=== PATIENT | male | born 1980 | race African-American/Black ===

== ENCOUNTER 2024-03-07 22:25 | Emergency (ER) | payer BC, SELFPAY ==
--- NOTE | 2024-03-07 22:27 | XR_ITS ---
The [address] [address] Patient Name: GEOFF TRAN MRN: [facility]:[id number] date: 1980 Sex: M Assigned Patient Location: ED.MAIN Current Patient Location: ED.MAIN Accession/Order Number: [id number] Exam Date: 03/07/2024 22:45 Report Date: 03/08/2024 00:21 At the request of: SHAHID BENEDICT Procedure: XR chest 2V XR chest 2V 03/07/2024 9:45 PM CDT: History: chest pain Comparison: None. Technique: 2 view chest Findings: The cardiomediastinal silhouette is normal. The lungs are clear without infiltrate, effusion, or pneumothorax. The bones are intact. XR/XR chest 2V Impression: No acute cardiopulmonary process. Electronically authenticated by: REBECCA ALMONTE Date: 03/08/2024 00:21
--- NOTE | 2024-03-07 22:27 | ECG_ITS ---
The [facility] Test Date: 2024-03-07 Pat Name: GEOFF CACERES Department: Room: - Gender: Male [employer] Machine Operator: : 1980 Requested By: Order Number: [id number] Reading MD: NAVEED JULIO Measurements Intervals [place]henry Rate: 69 P: 64 DE: 142 QRS: 97 QRSD: 84 T: -21 QT: 360 QTc: 379 Interpretive Statements 1100 Sinus rhythm [address] depression 4564 Twave abnormality, possible inferolateral ischemia 7102 Moderate right axis deviation 9150 abnormal ECG No previous ECG available for comparison Electronically Signed On 03-08-2024 12:31:55 EDT by NAVEED JULIO
[2024-03-07 22:29] VITALS: PULSE 69
[2024-03-07 22:31] VITALS: BP 134/84; PULSE 70; TEMP 36.8; O2SAT 97; BMI 31.3
[2024-03-07 22:41] LABS: Basophils Percent Auto 0.6 % (0.2-2.0); Eosinophils Absolute Auto 0.1 10^3/uL (0.0-0.7); Eosinophils Percent Auto 1.1 % (0.9-7.0); Hematocrit 41.1 % (42.0-54.0); Hemoglobin 14.5 g/dL (14.0-18.0); Immature Granulocytes Abs Auto 0.02 10^3/uL (0.00-0.03); Immature Granulocytes Pct Auto 0.3 % (0.0-0.5); Lymphocytes Absolute Auto 2.1 10^3/uL (1.2-3.8); Lymphocytes Percent Auto 29.9 % (20.5-60.0); Mean Corpuscular HGB Conc 35.3 g/dL (29.9-35.2); Mean Corpuscular Hemoglobin 28.2 pg (25.9-34.0); Mean Corpuscular Volume 79.8 fL (80.0-94.0); Mean Platelet Volume 9.9 fL (9.5-13.5); Monocytes Absolute Auto 0.4 10^3/uL (0.3-0.8); Monocytes Percent Auto 5.9 % (1.7-12.0); Neutrophils Absolute Auto 4.4 10^3/uL (1.4-6.5); Neutrophils Percent Auto 62.2 % (43.0-75.0); Platelet Count 309 10^3/uL (150-450); Red Blood Count 5.15 10^6/uL (4.70-6.10); White Blood Count 7.1 10^3/uL (4.0-11.0)
[2024-03-07 22:55] LABS: Alanine Aminotransferase 54 U/L (16-63); Albumin Level 3.8 g/dL (3.4-5.0); Alkaline Phosphatase 76 U/L (46-116); Aspartate Amino Transferase 30 U/L (15-37); BUN Creatinine Ratio 6.4; Bilirubin Total 0.9 mg/dL (0.2-1.0); Calcium 8.9 mg/dL (8.5-10.1); Carbon Dioxide 28.6 mmol/L (21.0-32.0); Chloride 100 mmol/L (98-107); Estimated GFR (African America >60 (>=60); Estimated GFR (Non-African Ame >60 (>=60); Globulin 3.8 g/dL; Glucose 145 mg/dL (74-106); Potassium 3.6 mmol/L (3.5-5.1); Sodium 136 mmol/L (136-145); Total Protein 7.6 g/dL (6.4-8.2)
[2024-03-07 22:57] LABS: INR 0.97; Partial Thromboplastin Time 25.2 sec (22.3-36.2); Prothrombin Time 10.3 sec (9.0-11.6); Troponin I High Sensitivity 13.8 pg/mL (4.0-76.1)
[2024-03-07 23:06] LABS: Bilirubin Urine NEGATIVE (NEGATIVE); Blood Urine NEGATIVE (NEGATIVE); Clarity Urine CLEAR (CLEAR); Color Urine LT. YELLOW (YELLOW); Glucose Urine UA NEGATIVE (NEGATIVE); Ketones Urine NEGATIVE (NEGATIVE); Leukocyte Esterase Urine NEGATIVE (NEGATIVE); Nitrite Urine NEGATIVE (NEGATIVE); Protein Urine NEGATIVE (NEG/TRACE); Specific Gravity Urine <=1.005 (1.005-1.025); Urine Microscopic Indicated NO; Urobilinogen Urine 0.2 EU/dL (0.2-1.0)
--- NOTE | 2024-03-07 23:11 | ED.GENADUL1 ---
HPI HPI - General Adult General Chief complaint: Chest Pain Stated complaint: CP Time Seen by Provider: 03/07/24 22:27 Source: patient Mode of arrival: ambulance Limitations: no limitations History of Present Illness HPI narrative: 43-year-old male to the emergency department chief chest pain. Patient reports an intermittent left-sided chest pressure that started yesterday afternoon during his [employer] reports this has happened several times in the past when he drinking and denies any shortness of breath. No cardiac history. He does reports that he is seen in the emergency department for chest pain with similar episode in the past. Always associated with energy drinks. He has otherwise been at his baseline health. He lives in [place], is currently working as a fire truck driver. He reports that he drink the energy drink because he was feeling tired. EMS gave aspirin and nitro. He does not currently have pain. Related Data Home Medications ?Medication ?Instructions ?Recorded ?Confirmed No Known Home Medications 03/07/24 03/07/24 Allergies Allergy/AdvReac Type Severity Reaction Status Date / Time No Known Drug Allergies Allergy Verified 03/07/24 22:36 Opioid HPI Opioid Management Most Recent Opioid Data: No Data to Display Review of Systems ROS Status of ROS 10 or more systems reviewed and unremarkable except as noted in history and below Exam Narrative Exam Narrative: VITALS: I have reviewed the triage vital signs. GENERAL: Well developed, well appearing adult in no acute distress. NEURO: Alert and oriented. Moves all extremities. Face is symmetric and expressive. EYES: PERRL. No scleral icterus or conjunctival injection. No discharge. HENT: Normocephalic, atraumatic. Hearing is grossly intact. Nares grossly patent and without discharge. Mucous membranes moist. NECK: No JVD. Patient moves neck without restriction. CARDIO: Rhythm regular. Normal rate. No murmur, rub, or gallop. Pulses equal bilaterally in the upper and lower extremity. No lower extremity edema. PULM: Lungs clear to auscultation in all fernandez. No wheezes, rales, or rhonchi. No conversational dyspnea. No splinting, stridor, or accessory muscle use. GI/: Abdomen is soft and non-tender. Normoactive bowel sounds. EXTREMITIES: Symmetric muscle bulk. No joint swelling. No clubbing, cyanosis, or deformity. SKIN: Warm and dry. Normal turgor. No rash or lesions appreciated. PSYCH: Mood, affect, and interaction is appropriate to the setting. Constitutional Vital Signs, click to edit/add: Last Vital Signs Temp 98.3 F 03/07/24 22:31 Pulse 59 L 03/08/24 00:40 Resp 18 03/08/24 00:40 BP 112/56 03/08/24 00:40 Pulse Ox 98 03/08/24 00:40 O2 Del Method Room Air 03/08/24 00:40 Course Vital Signs Vital signs: Vital Signs Temperature 98.3 F 03/07/24 22:31 Pulse Rate 70 03/07/24 22:31 Respiratory Rate 16 03/07/24 22:31 Blood Pressure 134/84 03/07/24 22:31 Pulse Oximetry 97 03/07/24 22:31 Oxygen Delivery Method Room Air 03/07/24 22:31 Temperature 98.3 F 03/07/24 22:31 Pulse Rate 59 L 03/08/24 00:40 Respiratory Rate 18 03/08/24 00:40 Blood Pressure 112/56 03/08/24 00:40 Pulse Oximetry 98 03/08/24 00:40 Oxygen Delivery Method Room Air 03/08/24 00:40 Medical Decision Making MDM Narrative Medical decision making narrative: 43-year-old male to the emergency department chief complaint chest pain since yesterday when he vital stable, the patient is afebrile. Cardiac workup is initiated. EKG does not show STEMI. Patient agrees with this plan. CBC and chemistry without major abnormality. Initial troponin low. Chest x-ray without acute findings. Repeat troponin remains low. I discussed with the patient. He is relieved. Discussed low risk heart score, discharge versus further work-up/admit. He will follow-up with his doctor when he returns home. Discussed recommendation for provocative testing as an outpatient. Return precautions were discussed. All questions were answered. The patient was discharged home. Heart Score for Major Cardiac Event History: Example factors for history - pattern of chest pain, onset, duration, relation with exercise, stress or cold, localization, concomitant symptoms. reaction to sublingual nitrates, [] Highly suspicious +2 [] Moderately suspicious +1 [x] Slightly suspicious 0 EKG: [] Significant ST-Depression +2 [x] Non specific repolarization disturbance +1 [] Normal 0 Age: [] >= 65 +2 [] 45-65 + 1 [x] <45 0 Risk Factors: (HLD, HTN, DM, Cigarette Smoking, Pos Family Hx, Obesity) [] >3 risk factors or hx of atherosclerotic disease + 2 [x] 1-2 risk factors + 1 [] No risk factors known 0 Troponin: [] >= 3X normal + 2 [] 1-3X normal + 1 [x] <= Normal 0 [x] 0-3 Points 0.9 - 1.7% risk of major adverse cardiac event in 6 weeks [] 4-6 Points 12-16.6% risk of major adverse cardiac event in 6 weeks [] 7-10 Points 50-65% risk of major adverse cardiac event in 6 weeks [] 0-3 Points with 2 sets of negative cardiac markers <1% risk of major adverse cardiac event in 30 days. Medical Records Medical records reviewed: Yes I reviewed the patient's medical records Lab Data Lab results reviewed: Yes I reviewed the patient's lab results Labs: Lab Results 03/07/24 03/07/24 03/08/24 Range/Units 22:30 22:45 00:36 WBC 7.1 (4.0-11.0) 10^3/uL RBC 5.15 (4.70-6.10) 10^6/uL Hgb 14.5 (14.0-18.0) g/dL Hct 41.1 L (42.0-54.0) % MCV 79.8 L (80.0-94.0) fL MCH 28.2 (25.9-34.0) pg MCHC 35.3 H (29.9-35.2) g/dL RDW 12.0 (11.0-15.0) % Plt Count 309 (150-450) 10^3/uL MPV 9.9 (9.5-13.5) fL Neut % (Auto) 62.2 (43.0-75.0) % Lymph % (Auto) 29.9 (20.5-60.0) % [place] % (Auto) 5.9 (1.7-12.0) % Eos % (Auto) 1.1 (0.9-7.0) % Baso % (Auto) 0.6 (0.2-2.0) % Neut # (Auto) 4.4 (1.4-6.5) 10^3/uL Lymph # (Auto) 2.1 (1.2-3.8) 10^3/uL [place] # (Auto) 0.4 (0.3-0.8) 10^3/uL Eos # (Auto) 0.1 (0.0-0.7) 10^3/uL Baso # (Auto) 0.0 (0.0-0.1) 10^3/uL Abs Immat Gran (auto) 0.02 (0.00-0.03) 10^3/uL Imm/Tot Granulo (auto) 0.3 (0.0-0.5) % PT 10.3 (9.0-11.6) sec INR 0.97 APTT 25.2 (22.3-36.2) sec Sodium 136 (136-145) mmol/L Potassium 3.6 (3.5-5.1) mmol/L Chloride 100 (98-107) mmol/L Carbon Dioxide 28.6 (21.0-32.0) mmol/L Anion Gap 11.0 BUN 7.0 (7.0-18.0) mg/dL Creatinine 1.09 (0.70-1.30) mg/dL Est GFR ( Amer) >60 (>=60) Est GFR (Non-Af Amer) >60 (>=60) BUN/Creatinine Ratio 6.4 Glucose 145 H (74-106) mg/dL Calcium 8.9 (8.5-10.1) mg/dL Total Bilirubin 0.9 (0.2-1.0) mg/dL AST 30 (15-37) U/L ALT 54 (16-63) U/L Alkaline Phosphatase 76 (46-116) U/L Troponin I High Sens 13.8 13.6 (4.0-76.1) pg/mL Total Protein 7.6 (6.4-8.2) g/dL Albumin 3.8 (3.4-5.0) g/dL Globulin 3.8 g/dL Albumin/Globulin Ratio 1.0 Urine Color Lt. yellow (YELLOW) Urine Clarity Clear (CLEAR) Urine pH 6.0 (5.0-9.0) Ur Specific [place] <=1.005 A (1.005-1.025) Urine Protein Negative (NEG/TRACE) mg/dL Urine Glucose (UA) Negative (NEGATIVE) mg/dL Urine Ketones Negative (NEGATIVE) mg/dL Urine Occult Blood Negative (NEGATIVE) Urine Nitrite Negative (NEGATIVE) Urine Bilirubin Negative (NEGATIVE) Urine Urobilinogen 0.2 (0.2-1.0) EU/dL Ur Leukocyte Esterase Negative (NEGATIVE) Imaging Data Chest x-ray: Attestation: I have reviewed the pertinent imaging results. Radiologist's impression: ITS Impressions Chest X-Ray 03/07/24 22:27 Impression: No acute cardiopulmonary process. Electronically authenticated by: REBECCA ALMONTE Date: 03/08/2024 00:21 ECG Data Attestation: I personally reviewed and interpreted this ECG as follows: (Normal sinus rhythm at a rate of 69. No STEMI. Normal QTc.) Discharge Plan Discharge Stand Alone Forms: Work/School Release, Portal Instructions Chief Complaint: Chest Pain Clinical Impression: Chest pain Patient Disposition: Home, Self-Care Time of Disposition Decision: 01:22 Condition: Good Mode of Transportation: Private Vehicle Prescriptions / Home Meds: No Action No Known Home Medications Print Language: Turkish Instructions: Chest Pain (ED) Additional Instructions: Call the office of your primary care doctor to arrange for follow-up within the above-stated timeframe. Your ED visit was focused on your acute issue and does not replace primary care. You should review your labs, imaging, and diagnoses from this ED visit with your primary care physician. There may be non-emergent/ incidental findings that need further evaluation. You should review your vital signs including blood pressure with your PCP. If you were prescribed medications you should discuss possible side-effects and drug interactions with your pharmacist. Call 911 or go to the nearest Emergency Department if you develop any new or worsening symptoms. Seek immediate medical attention if you develop: worsening chest pain, new chest pain, nausea, vomiting, weakness, numbness, tingling, excessive sweating, shortness of breath, difficulty breathing, loss of motion in your arms or legs, or any new or worsening symptoms. Follow-up with your doctor soon as possible. Discuss testing such as a stress test. Referrals: Physician,Non-Staff, MD [Primary Care Provider] - 1 week
[2024-03-07 23:55] VITALS: BP 118/58; PULSE 73; O2SAT 97
[2024-03-08 00:40] VITALS: BP 112/56; PULSE 59; O2SAT 98
[2024-03-08 00:59] LABS: Troponin I High Sensitivity 13.6 pg/mL (4.0-76.1)
== END 2024-03-08 01:33 | disposition home or self-care (01) ==
PROVIDERS: Emergency Provider Student in an Organized Health Care Education/Training Program
DX: R07.9 Chest pain, unspecified (principal)
CPT/HCPCS: 36415; 71046; 80053; 81003; 84484; 85025; 85610; 85730; 93005; 99285